=== PATIENT | female | born 1970 | race Caucasian/White ===

== ENCOUNTER → 2021-05-12 | Outpatient (CLI) | payer MEDICARE, OTHER ==
[~2021-05-12] MED LIST: IOHEXOL 350 MG/ML 100 ML VIAL. ONE
--- NOTE | 2021-05-13 08:56 | RAD ---
EXAM: CT chest with contrast - pulmonary embolus protocol CLINICAL HISTORY: Reason: POST COVID RESP FAILURE, PNEUMONIA, INFILTRATES, CHEST TUBE COMPARISON: 03/03/2021 TECHNIQUE: CT of the chest following the administration of intravenous contrast during the pulmonary arterial phase. Axial, coronal and sagittal reformatted images were generated including MIP images. ---PQRS compliance statement - One or more of the following individualized dose reduction techniques were utilized for this study: 1. Automated exposure control 2. Adjustment of the mA and/or kV according to patient size 3. Use of iterative reconstruction technique--- FINDINGS: CHEST: Diagnostic quality: Suboptimal contrast bolus. Examination is also limited by marked motion artifact particularly in the lower lungs.. Pulmonary emboli: No large central pulmonary emboli seen. The pulmonary artery branches are not adeq uately assessed. Right heart strain: None Pulmonary arteries: Normal in caliber. Heart is not enlarged. No pericardial effusion. Small left and trace right pleural effusions. No pneu mothorax. Mildly prominent mediastinal and hilar lymph nodes may be reactive. There are now cystic changes bilaterally within the lungs, new compared to 03/03/2021, for example melanie gular cystic change measures 5.1 cm. Bilateral parenchymal airspace opacities in the bilateral upper lungs and lower lungs as well as diff use groundglass airspace opacities are seen. Right PICC tip terminates within the distal SVC. Visualized Upper abdomen: Unremarkable Bones: No aggressive osseous lesion is seen within the constraints of MIP reconstructions. Multifocal degenerative changes are seen. IMPRESSION: 1. Bilateral parenchymal airspace opacities are seen likely consolidative process is pneumonia. Comp ared to 03/03/2021 there are now large cystic changes within both lungs. 2. Small left pleural effusion. Trace right pleural effusion. No pneumothorax. 3. Small mediastinal and hilar lymph nodes are likely reactive. Recommend close attention on follow- up. Electronically signed by: Dick Valenzuela MD (05/13/2021 8:54 AM) [id number]
== END ==
LOC: CT 13:49
PROVIDERS: ATTEND Internal Medicine
DX: U09.9 Post COVID-19 condition, unspecified (principal); J90 Pleural effusion, not elsewhere classified; I89.8 Other specified noninfective disorders of lymphatic vessels and lymph nodes; R91.8 Other nonspecific abnormal finding of lung field
CPT/HCPCS: 71275; Q9967